=== PATIENT | female | born 1995 | race Caucasian/White ===

== ENCOUNTER 2016-04-01 21:18 | Emergency (ER) | payer OTHER ==
[2016-04-01 21:25] VITALS: BP 117/68; PULSE 101; TEMP 100; BMI 19.9
[2016-04-01 21:35] LABS: URINE APPEARANCE Clear; URINE BILIRUBIN Negative (NEGATIVE); URINE BLOOD Negative (NEGATIVE); URINE GLUCOSE (UA) Negative (NEGATIVE); URINE KETONE Negative (NEGATIVE); URINE LEUK ESTERASE Negative (NEGATIVE); URINE NITRITE Negative (NEGATIVE); URINE PROTEIN Negative (NEGATIVE); URINE UROBILINOGEN 1.0 E.U/dl (0.2-1.0)
[2016-04-01 21:36] LABS: URINE COLOR YELLOW
[2016-04-01] MEDS ORDERED: ONDANSETRON 4 MG/2 ML VIAL IVPB ONE (22:14)
[2016-04-01] MEDS ORDERED: SODIUM CHLORIDE 1,000 ML IV STA (22:14)
[2016-04-01] MEDS ORDERED: KETOROLAC TROMETHAMINE 30 MG/1 ML VIAL IVPUSH ONE (22:15)
[2016-04-01] MEDS ORDERED: ONDANSETRON 4 MG/2 ML VIAL ONE (22:19)
[2016-04-01] MEDS ORDERED: KETOROLAC TROMETHAMINE 30 MG/1 ML VIAL ONE (22:19)
[2016-04-01 22:38] LABS: BASOPHIL 0.6 % (0-2.0); EOSINOPHIL 0.9 % (0-4.5); MCH 29.8 pg (25.7-33.7); MCHC 33.6 g/dl (32.0-36.0); MEAN CELL VOLUME 88.8 fl (80-96); MEAN PLT VOLUME 6.8 fl (7.5-11.1); NEUTROPHILS 82.7 % (42.8-82.8); PLATELET COUNT 197 K/MM3 (134-434); RDW 12.8 % (11.6-15.6); WHITE BLOOD COUNT 8.1 K/mm3 (4.0-10.0)
--- NOTE | 2016-04-01 23:13 | PDOC ---
History of Present Illness - General Chief Complaint: Pain Stated Complaint: ABD PAIN/NAUSEA/CHILLS Time Seen by Provider: 04/01/16 22:13 History Source: Patient Exam Limitations: No Limitations - History of Present Illness Initial Comments: 04/01/16 23:07 20 y f hx o ovarian cysts. pte c/o abd pain since last week. b/l but mostly on rt and suprapubic areas. started at epigastrium. nausea but no vomiting. fever and chills. no dysuria, but fcy. in ed in mild distress. sts gets cramps w/ her periods but never like this or with fever. due in the next 2-3 days for it. Past History - Past Medical History Allergies/Adverse Reactions: Allergies Allergy/AdvReac Type Severity Reaction Status Date / Time Penicillins Allergy Verified 12/07/14 18:17 Home Medications: Ambulatory Orders Albuterol Sulfate Inhaler - [Ventolin HFA Inhaler -] 1 - 2 inh PO QID PRN Ibuprofen [Motrin -] 600 mg PO TID #21 tablet 07/29/14 Oxycodone HCl/Acetaminophen [Percocet 5-325 mg Tablet -] 1 - 2 tab PO Q6H #7 tablet 07/29/14 Asthma: Yes - Psycho/Social/Smoking Cessation Hx Anxiety: No Suicidal Ideation: No Smoking History: Never smoked Have you smoked in the past 12 months: No Number of Cigarettes Smoked Daily: 0 Information on smoking cessation initiated: No Hx Alcohol Use: No Drug/Substance Use Hx: No Substance Use Type: None Review of Systems - Review of Systems Able to Perform ROS?: Yes Is the patient limited Tongan proficient: No Constitutional: Yes: Symptoms Reported, See HPI HEENTM: No: Symptoms Reported Respiratory: No: Symptoms reported Cardiac (ROS): No: Symptoms Reported ABD/GI: Yes: Symptoms Reported, See HPI : Yes: Symptoms Reported, See HPI Integumentary: No: Symptoms Reported All Other Systems: Reviewed and Negative *Physical Exam - Vital Signs Last Vital Signs Temp Pulse Resp BP Pulse Ox 100 F H 101 H 14 117/68 99 04/01/16 21:21 04/01/16 21:21 04/01/16 21:21 04/01/16 21:21 04/01/16 21:21 - Physical Exam General Appearance: Yes: Nourished, Appropriately Dressed. No: Apparent Distress HEENT: positive: Normal ENT Inspection Neck: positive: Supple Respiratory/Chest: positive: Lungs Clear, Normal Breath Sounds. negative: Chest Tender, Respiratory Distress Cardiovascular: positive: Regular Rhythm, Regular Rate, Tachycardia Gastrointestinal/Abdominal: positive: Normal Bowel Sounds, Tender (rlq and suprapubic area no g/r) Musculoskeletal: positive: Normal Inspection. negative: CVA Tenderness Extremity: positive: Normal Capillary Refill Integumentary: positive: Normal Color Neurologic: positive: Fully Oriented, Alert, Normal Mood/Affect, Normal Response , Motor Strength 07/17 ED Treatment Course - LABORATORY CBC & Chemistry Diagram: 04/01/16 22:25 - ADDITIONAL ORDERS Additional order review: Laboratory Results 04/01/16 21:30 Urine Color Yellow Urine Appearance Clear Urine pH 7.0 Ur Specific [place] 1.025 Urine Protein Negative Urine Glucose (UA) Negative Urine Ketones Negative Urine Blood Negative Urine Nitrite Negative Urine Bilirubin Negative Urine Urobilinogen 1.0 e.u/dl Ur Leukocyte Esterase Negative Urine HCG, Qual Negative 04/01/16 22:25 RBC 4.40 MCV 88.8 MCHC 33.6 RDW 12.8 MPV 6.8 L Neutrophils % 82.7 D Lymphocytes % 10.8 D Monocytes % 5.0 Eosinophils % 0.9 Basophils % 0.6 - RADIOLOGY Radiology Studies Ordered: Category Date Time Status ABDOMEN & PELVIS CT W/O CONTR [CT] Stat CT Scan 04/01/16 23:07 Ordered - Medications Given in the ED: ED Medications Discontinued Medications Generic Name Dose Route Start Last Admin Trade Name Gerardo PRN Reason Stop Dose Admin Ketorolac Tromethamine 30 mg 04/01/16 22:15 04/01/16 22:31 Toradol Injection - IVPUSH 04/01/16 22:16 30 mg ONCE ONE Administration Ondansetron HCl 4 mg 04/01/16 22:14 04/01/16 22:30 Zofran Injection IVPB 04/01/16 22:15 4 mg ONCE ONE Administration Progress Note - Progress Note Progress Note: 1 week hx of pain and now fever could be pretty much anything at this paint, from cramps + viral syndrome to appy/pelvic infection. cbc is good and so is her u/a. will ct a/p and reassess Ct nrmal except for some fluid in the cds. pelvic exam: + d/c; no CMT. no adx tenderness feels better normal labs *DC/Admit/Observation/Transfer Diagnosis at time of Disposition: Pelvic pain - Discharge Dispostion Disposition: HOME Condition at time of disposition: Improved - Patient Instructions Additional Instructions: PLENTY OF FLUIDS (WATER/GATORADE) MOTRIN/TYLENOL FOR FEVER OR PAIN REST SEE YOUR DOCTOR ON WEDNESDAY RETURN IF FEVER, VOMITING, SEVERE PAIN OR NEW SYMPTOMS
[2016-04-07 00:09] LABS: CHLAM.TRACHOMATIS NAA Negative (Negative); GONOCOCCUS NAA Negative (Negative); TRICH VAG NAA Negative (Negative)
== END 2016-04-02 00:44 | disposition home or self-care (01) ==
LOC: FER 21:18
PROC: 3E0333Z Introduction of Anti-inflammatory into Peripheral Vein, Percutaneous Approach (ICD-10-PCS; principal; 2016-04-01)
PROC: 3E033GC Introduction of Other Therapeutic Substance into Peripheral Vein, Percutaneous Approach (ICD-10-PCS; 2016-04-01)
PROC: 3E0337Z Introduction of Electrolytic and Water Balance Substance into Peripheral Vein, Percutaneous Approach (ICD-10-PCS; 2016-04-01)
DX: R10.2 Pelvic and perineal pain (principal); J45.909 Unspecified asthma, uncomplicated
CPT/HCPCS: 36415; 74176-TC; 81003; 84703; 85025; 87491; 87591; 87661; 99283-25

== ENCOUNTER 2016-05-08 18:50 | Emergency (ER) | payer OTHER ==
[2016-05-08 19:06] VITALS: BP 111/77; PULSE 75; TEMP 97.7; BMI 21.4
[2016-05-08 19:17] LABS: URINE APPEARANCE Clear; URINE BILIRUBIN Negative (NEGATIVE); URINE BLOOD Negative (NEGATIVE); URINE GLUCOSE (UA) Negative (NEGATIVE); URINE KETONE Negative (NEGATIVE); URINE LEUK ESTERASE Negative (NEGATIVE); URINE NITRITE Negative (NEGATIVE); URINE PROTEIN Negative (NEGATIVE); URINE UROBILINOGEN 1.0 E.U/dl (0.2-1.0)
[2016-05-08 19:18] LABS: URINE COLOR YELLOW
--- NOTE | 2016-05-08 19:37 | PDOC ---
History of Present Illness - General History Source: Patient Exam Limitations: No Limitations - History of Present Illness Travel History: No Initial Comments: 05/08/16 20:16 The patient is a 20 year old female with no significant past medical history who presents to the ED with nausea, vomiting, and diarrhea 1 week. Patient reports multiple episodes of vomiting watery in nature, non bloody, non bilious. She also reports epigastric pain and substernal chest discomfort that is exacerbated by a vomiting episode. She also reports one episode of diarrhea today. She states that she is unable to keep much down. She reports tactile fever and diaphoresis. She denies recent travel. She denies recent sick contact. Patient has a control patch. Adult PAST MEDICAL HISTORY: no significant history PAST SURGICAL HISTORY: no significant history FAMILY HISTORY: no pertinent history SOCIAL HISTORY: Pt lives with family and is employed. MEDICATIONS: reviewed ALLERGIES: As per nursing notes General: +fever. No chills, no weakness, no weight loss HEENT: No change in vision. No sore throat, No ear pain CardioVascular: +chest discomfort. No shortness of breath Respiratory: No cough, or wheezing. Gastrointestinal: +nausea, +vomiting, +diarrhea, +epigastric pain. No constipation, No rectal bleeding Genitourinary: No dysuria, hematuria, or frequency Musculoskeletal: No joint or muscle pain or swelling Neurologic: No headache, vertigo, dizziness or loss of consciousness Psychiatric: nor depression Skin: No rashes or easy bruising Endocrine: no increased thirst or abnormal weight change Allergic: no skin or latex allergy All other systems reviewed and normal General: Well-nourished well-developed individual, no acute distress HEENT: +dry mucous membranes. Throat: Normal, tonsils normal, no erythema or exudate Neck: Supple, no meningeal signs, no lymphadenopathy Eyes: Pupils equal reactive and round, extraocular motion intact Chest: Nontender to palpation Cardiac: S1-S2 normal, regular rate and rhythm, no murmurs rubs or gallops Respiratory: Lungs clear to auscultation bilateral Abdomen: +mild epigastric tenderness upon palpation, no guarding or rebound. Soft, nondistended, normal bowel sounds. Extremities: Warm, dry, no cyanosis, clubbing, or edema Skin: No rashes Neuro: Alert and oriented x3, nonfocal exam, grossly intact, normal gait Psych: Normal mood and affect <KoziyElizabeth - Last Filed: 05/08/16 20:53> - General History Source: Patient Exam Limitations: No Limitations - History of Present Illness Initial Comments: 05/08/16 23:26 A portion of this note was documented by scribe services under my direction. I have reviewed the details of the note, within reason, and agree with the documentation. The case summary and management plan written by me. Assessment and plan: This is a 20-year-old female who comes in complaining of intermittent nausea vomiting and diarrhea 1 week. Patient said the diarrhea has nearly resolved but she continues to feel nauseous and have intermittent vomiting. Patient also was complaining of some burning type epigastric pain. Patient was given IV fluids 2 L in the emergency room She was also given antiemetics and antacids. On reevaluation patient feels much better pain has nearly resolved nausea is nearly resolved and she is now well hydrated. Lab work was sent her white count is normal there is no left shift and her chemistries are unremarkable. Patient discharged home with prescription for Zofran and told to take antacids if the discomfort in her epigastric area returns and to follow-up with her DrTad on Wednesday. 05/08/16 23:28 <Humberto Mtz I - Last Filed: 05/08/16 23:29> - General Chief Complaint: Vomiting/Diarrhea Stated Complaint: VOMITING & DIARRHEA Time Seen by Provider: 05/08/16 18:55 Past History <Elizabeth Hayes - Last Filed: 05/08/16 20:53> - Past Medical History Asthma: Yes - Immunization History Immunization Up to Date: Yes - Psycho/Social/Smoking Cessation Hx Anxiety: No Suicidal Ideation: No Smoking History: Unknown if ever smoked Have you smoked in the past 12 months: No Number of Cigarettes Smoked Daily: 0 Hx Alcohol Use: No Drug/Substance Use Hx: No Substance Use Type: None <Humberto Mtz I - Last Filed: 05/08/16 23:29> - Past Medical History Allergies/Adverse Reactions: Allergies Allergy/AdvReac Type Severity Reaction Status Date / Time Penicillins Allergy Verified 05/08/16 18:56 Home Medications: Ambulatory Orders NK [No Known Home Medication] 05/08/16 *Physical Exam - Vital Signs Last Vital Signs Temp Pulse Resp BP Pulse Ox 97.7 F 75 16 111/77 100 05/08/16 18:55 05/08/16 18:55 05/08/16 18:55 05/08/16 18:55 05/08/16 18:55 <Elizabeth Hayes - Last Filed: 05/08/16 20:53> - Vital Signs Last Vital Signs Temp Pulse Resp BP Pulse Ox 97.7 F 75 16 111/77 100 05/08/16 18:55 05/08/16 18:55 05/08/16 18:55 05/08/16 18:55 05/08/16 18:55 <Humberto Mtz I - Last Filed: 05/08/16 23:29> ED Treatment Course - LABORATORY CBC & Chemistry Diagram: 05/08/16 20:25 05/08/16 20:25 - ADDITIONAL ORDERS Additional order review: Laboratory Results 05/08/16 19:05 Urine Color Yellow Urine Appearance Clear Urine pH 6.0 Ur Specific [place] 1.025 Urine Protein Negative Urine Glucose (UA) Negative Urine Ketones Negative Urine Blood Negative Urine Nitrite Negative Urine Bilirubin Negative Urine Urobilinogen 1.0 e.u/dl Ur Leukocyte Esterase Negative Urine HCG, Qual Negative - Medications Given in the ED: ED Medications Discontinued Medications Generic Name Dose Route Start Last Admin Trade Name Gerardo PRN Reason Stop Dose Admin Ondansetron HCl 4 mg 05/08/16 19:42 05/08/16 20:00 Zofran Injection IVPB 05/08/16 19:43 4 mg ONCE ONE Administration Ondansetron HCl 4 mg 05/08/16 19:48 05/08/16 20:00 Zofran Injection IVPUSH 05/08/16 19:49 4 mg ONCE ONE Administration <Elizabeth Hayes - Last Filed: 05/08/16 20:53> - LABORATORY CBC & Chemistry Diagram: 05/08/16 20:25 05/08/16 20:25 - ADDITIONAL ORDERS Additional order review: Laboratory Results 05/08/16 19:05 Urine Color Yellow Urine Appearance Clear Urine pH 6.0 Ur Specific [place] 1.025 Urine Protein Negative Urine Glucose (UA) Negative Urine Ketones Negative Urine Blood Negative Urine Nitrite Negative Urine Bilirubin Negative Urine Urobilinogen 1.0 e.u/dl Ur Leukocyte Esterase Negative Urine HCG, Qual Negative <TomFariba rosadokrzysztofsamuel Cerna - Last Filed: 05/08/16 23:29> *DC/Admit/Observation/Transfer - Attestations Scribe Attestion: 05/08/16 20:53 Documentation prepared by RAJ Honeycutt, acting as auditor medical claims for Humberto Mtz MD/DO. <Elizabeth Hayes - Last Filed: 05/08/16 20:53> - Discharge Dispostion Admit: No <BibiFaribadaisyalonzo Cerna - Last Filed: 05/08/16 23:29> Diagnosis at time of Disposition: Gastroenteritis - Discharge Dispostion Disposition: HOME Condition at time of disposition: Good - Referrals Referrals: Constance Irizarry [Primary Care Provider] - - Patient Instructions Printed Discharge Instructions: DI for Vomiting -- Adult Additional Instructions: Clear liquids only for the next 6 hours.. After that if you have had no further vomiting you may have bananas, rice, applesauce, or toast. If no further vomiting for another 8 hours you may have regular food. If you vomit again then nothing to eat or drink for 2 hours. then start back with the clear liquids. Return to the emergency department immediately with ANY new, persistent or worsening symptoms. You MUST call and follow up with your doctor tomorrow if not better. Please make sure your doctor reviews the results of your emergency evaluation. If you develop any further nausea you can take Zofran 1 tablet T dissolve under your tongue take it as often as 3 times a day if needed. 4 pain in your upper abdominal area take antacids such as [id number] Pepcid or Tums. Continue any medications as previously prescribed by your physician. Thank you for coming to the Emergency Department today for your care. It was a pleasure to see you today. Please note that your evaluation is INCOMPLETE until you follow-up with your doctor.
[2016-05-08] MEDS ORDERED: SODIUM CHLORIDE 1,000 ML IV ONE (19:42)
[2016-05-08] MEDS ORDERED: ONDANSETRON 4 MG/2 ML VIAL IVPB ONE (19:42)
[2016-05-08] MEDS ORDERED: ONDANSETRON 4 MG/2 ML VIAL ONE ×2 (19:45→19:48)
[2016-05-08] MEDS ORDERED: ONDANSETRON 4 MG/2 ML VIAL IVPUSH ONE (19:48)
[2016-05-08] MEDS ORDERED: FAMOTIDINE 20 MG/50 ML IVPB 50 ML IVPB ONE ×2 (20:15→20:40)
[2016-05-08 20:40] LABS: BASOPHIL 1.5 % (0-2.0); EOSINOPHIL 3.3 % (0-4.5); MCH 29.7 pg (25.7-33.7); MCHC 33.8 g/dl (32.0-36.0); MEAN CELL VOLUME 87.9 fl (80-96); NEUTROPHILS 59.5 % (42.8-82.8); PLATELET COUNT 276 K/MM3 (134-434); RDW 12.6 % (11.6-15.6); WHITE BLOOD COUNT 8.3 K/mm3 (4.0-10.0)
[2016-05-08 21:00] LABS: ALBUMIN 3.9 g/dl (3.5-5.0); ALK PHOS 38 U/L (32-92); ANION GAP 7 (8-16); BILIRUBIN,TOTAL 0.4 mg/dl (0.2-1.0); CALCIUM 9.2 mg/dl (8.4-10.2); CO2 29 mmol/L (22-28); CREATININE 0.7 mg/dl (0.6-1.3); GLUCOSE,RANDOM 79 mg/dl (74-106); SGOT/AST 20 U/L (10-42); SGPT/ALT 15 U/L (10-40); TOT PROT 6.7 g/dl (6.4-8.3)
[2016-05-08] MEDS ORDERED: METOCLOPRAMIDE HCL INJECTION 10 MG/2 ML VIAL IVPUSH ONE (21:21)
[2016-05-08] MEDS ORDERED: MAG HYDROX/AL HYDROX/SIMETH 355 ML ORAL.SUSP PO ONE (22:01)
[2016-05-08] MEDS ORDERED: MAG HYDROX/AL HYDROX/SIMETH 30 ML UNIT-DOSE CUP ONE (22:36)
== END 2016-05-08 23:36 | disposition home or self-care (01) ==
LOC: FER 18:50
PROC: 3E033GC Introduction of Other Therapeutic Substance into Peripheral Vein, Percutaneous Approach (ICD-10-PCS; principal; 2016-05-08)
PROC: 3E0337Z Introduction of Electrolytic and Water Balance Substance into Peripheral Vein, Percutaneous Approach (ICD-10-PCS; 2016-05-08)
DX: K52.9 Noninfective gastroenteritis and colitis, unspecified (principal)
CPT/HCPCS: 36415; 80053; 81003; 84703; 85025; 99282-25

== ENCOUNTER 2016-06-05 10:45 | Emergency (ER) | payer OTHER ==
[2016-06-05 10:51] VITALS: BP 105/73; PULSE 66; TEMP 98.7; BMI 21.1
--- NOTE | 2016-06-05 10:54 | PDOC ---
History of Present Illness - General Chief Complaint: Respiratory Stated Complaint: COUGH Time Seen by Provider: 06/05/16 10:46 History Source: Patient Exam Limitations: No Limitations - History of Present Illness Initial Comments: 06/05/16 10:47 This is an otherwise healthy 20 yo F presenting to the ER with a complaint of cough Symptoms have been present for the past week She saw her PMD approximately 4 days ago, was given cough medicine Pt states that over the past few days, her symptoms worsened She denies shortness of breath Although she has a history of asthma, she denies wheezing currently She presented today due to complaints about lower thoracic pain which wraps around to the front of her chest (+) ill contact (2 year old child) No recent travel PMH: Asthma (no prior intubations) PSH: denies Meds: control patch ALL: PCN Social: denies tobacco, drug use. Student at [employer] ROS: GENERAL/CONSTITUTIONAL: Yes: subjective fevers No: weakness, loss of appetite. HEAD, EYES, EARS, NOSE AND THROAT: No: change in vision, ear pain, discharge, sore throat, throat swelling. CARDIOVASCULAR: Yes: lower chest pain No: lightheadedness, palpitations, syncope RESPIRATORY: Yes: cough No: shortness of breath, wheezing, hemoptysis, stridor. GASTROINTESTINAL: No: nausea, vomiting, diarrhea, abdominal pain GENITOURINARY: No:flank pain (pain is just superior to flanks bilaterally) MUSCULOSKELETAL: Yes: lower thoracic back pain SKIN: No: lesions, rash NEUROLOGIC: No: headache ENDOCRINE: No: unexplained weight gain or loss HEMATOLOGIC/LYMPHATIC: No: anemia, easy bleeding, swelling nodes. PE: GENERAL: The patient is in no acute distress, (+) coughing during examination. HEAD: Normal with no signs of trauma. EYES: PERRLA, EOMI, sclera anicteric, conjunctiva clear. ENT: Ears normal, nares patent, oropharynx clear without exudates. Moist mucous membranes. NECK: Normal range of motion, supple without lymphadenopathy, JVD, or masses. LUNGS: Breath sounds equal, clear to auscultation bilaterally. No wheezes HEART: Regular rate and rhythm, normal S1 and S2 without murmur, rub or gallop. ABDOMEN: Soft, nontender, normoactive bowel sounds. No guarding, no rebound. No masses palpable. EXTREMITIES: Normal range of motion, no edema. No clubbing or cyanosis. No erythema, or tenderness. NEUROLOGICAL: Cranial nerves II through XII grossly intact. Normal speech. No focal neurological deficits. MUSCULOSKELETAL: Back non-tender to palpation, no CVA tenderness SKIN: Warm, Dry, normal turgor, no rashes or lesions noted. 06/05/16 10:54 06/05/16 11:00 Past History - Past Medical History Allergies/Adverse Reactions: Allergies Allergy/AdvReac Type Severity Reaction Status Date / Time Penicillins Allergy Verified 06/05/16 10:46 Home Medications: Ambulatory Orders Azithromycin [Zithromax 250mg Tablets -] 250 mg PO UTDICT #6 tab 06/05/16 Control Patch 0 mg TD DAILY 06/05/16 Guaifenesin [Mucinex -] 600 mg PO BID #14 tablet.er 06/05/16 Asthma: Yes - Immunization History Immunization Up to Date: Yes - Psycho/Social/Smoking Cessation Hx Anxiety: No Suicidal Ideation: No Smoking History: Unknown if ever smoked Have you smoked in the past 12 months: No Number of Cigarettes Smoked Daily: 0 Hx Alcohol Use: No Drug/Substance Use Hx: No Substance Use Type: None Medical Decision Making - Medical Decision Making 06/05/16 10:59 Symptoms began with cough that has worsened and persisted Back pain likely consistent with muscular pain due to coughing Possibly related to lower lobe pneumonia vs. pleural effusion Unlikely PE (no tachycardia, No hypoxia, no tobacco use... but pt is on control) Will do: Urine HCG CXR Will plan to discharge to home 06/05/16 11:14 Laboratory Tests 06/05/16 10:46 Urine HCG, Qual Negative 06/05/16 12:02 CXR nml Pt brother presented to the ER States she has actually had a cold for the past 3 weeks She has progressively worsened Will: discharge on Azithromycin Mucinex Return if symptoms do not improve *DC/Admit/Observation/Transfer Diagnosis at time of Disposition: Cough Upper respiratory infection Qualifiers: URI type: unspecified viral URI Qualified Code(s): J06.9 - Acute upper respiratory infection, unspecified - Discharge Dispostion Disposition: HOME Condition at time of disposition: Stable Admit: No - Prescriptions Prescriptions: Guaifenesin [Mucinex -] 600 mg PO BID #14 tablet.er Azithromycin [Zithromax 250mg Tablets -] 250 mg PO UTDICT #6 tab - Patient Instructions Printed Discharge Instructions: DI for Viral Upper Respiratory Infection -- Adult, DI for Cough -- Adult Additional Instructions: Jenise Thank you for coming in to the ER today Please take medications as prescribed You can also take tylenol (1000mg - 2 extra strength Tylenol) or Motrin (600mg - 3 tablets) for fever or pain Please stay hydrated - water, gatorade, soups, teas Please return to the ER if your symptoms persist or do not improve over the next 2 -3 days OR if you develop new symptoms Please follow up with your PMD in 1 week
== END 2016-06-05 12:08 | disposition home or self-care (01) ==
LOC: FER 10:45
DX: J06.9 Acute upper respiratory infection, unspecified (principal); B34.9 Viral infection, unspecified; J45.909 Unspecified asthma, uncomplicated
CPT/HCPCS: 71020-TC; 84703; 99282-25

== ENCOUNTER 2017-03-15 18:30 | Emergency (ER) | payer OTHER ==
[2017-03-15 19:09] VITALS: BP 123/83; PULSE 75; TEMP 98.1; BMI 21.5
[2017-03-15] MEDS ORDERED: SODIUM CHLORIDE 1,000 ML IV STA (19:16)
--- NOTE | 2017-03-15 19:17 | PDOC ---
History of Present Illness - History of Present Illness Initial Comments: 03/15/17 19:33 The patient is a 21 year old female, with a significant past medical history of asthma, on control patch, who presents to the emergency department with nausea, vomiting, and diarrhea since 10am today. Patient states she has been vomiting consistently every 20-30 minutes. Patient states vomit is nonbloody and bile-like. Patient states she has been unable to hold down any food or drink. She has had bouts of diarrhea, last episode was at 2pm. She also states she has been experiencing some intermittent light-headedness. She recalls feeling a little under the weather yesterday. She denies any recent travel or sick contacts. She states her LMP was two weeks late and her menses ended last week. She denies recent fevers, chills, headache or dizziness. She denies recent nausea, vomit, diarrhea or constipation. She denies recent dysuria, frequency, urgency or hematuria. She denies recent chest pain or shortness of breath. Allergies:penicillins Past surgical history: None reported. Social history: Nonsmoker. Social EtOH use. Denies recreational drug use. Primary Care Physician: Constance Irizarry <April Brown - Last Filed: 03/15/17 19:33> <Samantha Chacko - Last Filed: 03/16/17 04:30> - General Chief Complaint: Vomiting/Diarrhea Stated Complaint: N/V/D Time Seen by Provider: 03/15/17 19:05 Past History <April Brown - Last Filed: 03/15/17 19:33> - Past Medical History Asthma: Yes COPD: No - Immunization History Immunization Up to Date: Yes - Suicide/Smoking/Psychosocial Hx Smoking History: Never smoked Have you smoked in the past 12 months: No Number of Cigarettes Smoked Daily: 0 Hx Alcohol Use: Yes (SOCIAL) Drug/Substance Use Hx: No Substance Use Type: None <Samantha Chacko - Last Filed: 03/16/17 04:30> - Past Medical History Allergies/Adverse Reactions: Allergies Allergy/AdvReac Type Severity Reaction Status Date / Time Penicillins Allergy Verified 06/05/16 10:46 Home Medications: Ambulatory Orders Control Patch 0 mg TD DAILY 06/05/16 Ondansetron [Zofran Odt -] 4 mg SL TID PRN #10 od.tablet 03/15/17 Review of Systems - Review of Systems Comments:: 03/15/17 19:34 GENERAL/CONSTITUTIONAL: + subjective fever, No chills. HEAD, EYES, EARS, NOSE AND THROAT: No change in vision. No ear pain or discharge. No sore throat. CARDIOVASCULAR: No chest pain or shortness of breath. RESPIRATORY: No cough, wheezing, or hemoptysis. GASTROINTESTINAL: +nausea, +vomiting, +diarrhea. No constipation. GENITOURINARY: No dysuria, frequency, or change in urination. MUSCULOSKELETAL: No joint or muscle swelling or pain. No neck or back pain. SKIN: No rash NEUROLOGIC: +lightheadedness. No headache, loss of consciousness, or change in strength/sensation. ENDOCRINE: No increased thirst. No abnormal weight change. HEMATOLOGIC/LYMPHATIC: No anemia, easy bleeding, or history of blood clots. ALLERGIC/IMMUNOLOGIC: No hives or skin allergy. <April Brown - Last Filed: 03/15/17 19:33> *Physical Exam - Vital Signs Last Vital Signs Temp Pulse Resp BP Pulse Ox 98.1 F 75 15 123/83 100 03/15/17 19:03 03/15/17 19:03 03/15/17 19:03 03/15/17 19:03 03/15/17 19:03 - Physical Exam Comments: 03/15/17 19:34 GENERAL: Awake, alert, and fully oriented, in no acute distress HEAD: No signs of trauma EYES: PERRLA, EOMI, sclera anicteric, conjunctiva clear ENT: Auricles normal inspection, hearing grossly normal, nares patent, oropharynx clear without exudates. Dry mucous membranes. NECK: Normal ROM, supple, no lymphadenopathy, JVD, or masses LUNGS: Breath sounds equal, clear to auscultation bilaterally. No wheezes, and no crackles HEART: Regular rate and rhythm, normal S1 and S2, no murmurs, rubs or gallops ABDOMEN: Soft, mild epigastric tenderness, normoactive bowel sounds. No guarding, no rebound. No masses EXTREMITIES: Normal range of motion, no edema. No clubbing or cyanosis. No cords, erythema, or tenderness NEUROLOGICAL: Cranial nerves II through XII grossly intact. Normal speech, normal gait SKIN: Warm, Dry, normal turgor, no rashes or lesions noted. <April Brown - Last Filed: 03/15/17 19:33> - Vital Signs Last Vital Signs Temp Pulse Resp BP Pulse Ox 98.1 F 75 15 123/83 100 03/15/17 19:03 03/15/17 19:03 03/15/17 19:03 03/15/17 19:03 03/15/17 19:03 <Samantha Chacko - Last Filed: 03/16/17 04:30> ED Treatment Course - LABORATORY CBC & Chemistry Diagram: 03/15/17 19:15 03/15/17 19:15 <April Brown - Last Filed: 03/15/17 19:33> - LABORATORY CBC & Chemistry Diagram: 03/15/17 19:15 03/15/17 19:15 <Samantha Chacko - Last Filed: 03/16/17 04:30> Progress Note - Progress Note Progress Note: Documentation has been prepared under my direction and personally reviewed by me in its entirety. I attest that this documented accurately reflects all work, treatment, procedures and medical decision making performed by me. <Samantha Chacko - Last Filed: 03/16/17 04:30> Medical Decision Making - Medical Decision Making As noted above, this 21-year-old woman, otherwise healthy, presents with 1 day history of progressive nausea/vomiting. She also had a few episodes of loose stool. No recent travel or sick contacts; she cannot recall any unusual food exposure. Exam notable for dry mucous membranes and mildly tender epigastrium. No other tenderness/rebound/guarding present in her abdomen. Clinical presentation most consistent with acute gastroenteritis. Patient felt significantly better after administration of Zofran and 2 L of normal saline IV. Other than a mildly elevated white blood cell count, laboratory evaluation was essentially normal. Patient was given a trial of water by mouth which she was able tolerate without nausea or vomiting. Zofran OTD 4 mg up to 3 times a day (#10) was transmitted to her pharmacy Patient was instructed to maintain clear liquid diet and advance diet cautiously. She should return to the ER if she has recurrent vomiting or develops fever/worsening abdominal pain <Samantha Chacko - Last Filed: 03/16/17 04:30> *DC/Admit/Observation/Transfer - Attestations Scribe Attestion: 03/15/17 19:35 Documentation prepared by April Brown, acting as medical radiation tech for Samantha Chacko MD. <April Brown - Last Filed: 03/15/17 19:33> <Samantha Chacko - Last Filed: 03/16/17 04:30> Diagnosis at time of Disposition: Gastroenteritis - Discharge Dispostion Disposition: HOME Condition at time of disposition: Stable - Prescriptions Prescriptions: Ondansetron [Zofran Odt -] 4 mg SL TID PRN #10 od.tablet PRN Reason: Nausea - Referrals Referrals: Constance Irizarry [Primary Care Provider] - - Patient Instructions Printed Discharge Instructions: DI for Viral Gastroenteritis -- Adult Additional Instructions: Clear liquids; advance diet cautiously Zofran ODT 4 mg up to 3 times a day as needed for nausea Return to ER if you have persistent vomiting/high fever/worsening abdominal pain Follow-up with your general doctor within the next 2-3 days - Post Discharge Activity
[2017-03-15] MEDS ORDERED: ONDANSETRON 4 MG/2 ML VIAL IVPUSH ONE (19:28)
[2017-03-15 19:29] LABS: URINE APPEARANCE Clear; URINE BILIRUBIN Negative (NEGATIVE); URINE GLUCOSE (UA) Negative (NEGATIVE); URINE KETONE Trace (NEGATIVE); URINE NITRITE Negative (NEGATIVE); URINE PROTEIN Negative (NEGATIVE); URINE UROBILINOGEN 0.2 (0.2-1.0)
[2017-03-15 19:33] LABS: BASO % 0.2 % (0-2.0); EOS % 0.8 % (0-4.5); HEMATOCRIT 45.3 % (32.4-45.2); HEMOGLOBIN 14.9 GM/dl (10.7-15.3); LYMPH % 12.3 % (8-40); MCH 29.8 pg (25.7-33.7); MCHC 32.8 g/dl (32.0-36.0); MEAN CELL VOLUME 90.6 fl (80-96); MEAN PLT VOLUME 7.4 fl (7.5-11.1); MONO % 1.5 % (3.8-10.2); NEUT % 85.2 % (42.8-82.8); PLATELET COUNT 265 K/MM3 (134-434); RDW 12.9 % (11.6-15.6); WHITE BLOOD COUNT 11.1 K/mm3 (4.0-10.8)
[2017-03-15 19:37] LABS: HCG,QUALITATIVE URINE NEGATIVE
[2017-03-15 19:38] LABS: URINE BLOOD 2+ (NEGATIVE); URINE COLOR YELLOW
[2017-03-15] MEDS ORDERED: ONDANSETRON 4 MG/2 ML VIAL ONE (19:44)
[2017-03-15 19:51] LABS: ALBUMIN 4.2 g/dl (3.5-5.0); ALK PHOS 44 U/L (32-92); ANION GAP 7 (8-16); BLOOD UREA NITROGEN 19 mg/dl (7-18); CALCIUM 9.1 mg/dl (8.4-10.2); CHLORIDE 101 mmol/L (98-107); CO2 28 mmol/L (22-28); CREATININE 0.7 mg/dl (0.6-1.3); GLUCOSE,RANDOM 86 mg/dl (74-106); POTASSIUM 3.9 mmol/L (3.5-5.1); SGOT/AST 20 U/L (10-42); SGPT/ALT 15 U/L (10-40); SODIUM 136 mmol/L (136-145); TOT PROT 7.2 g/dl (6.4-8.3)
[2017-03-15 20:16] LABS: URINE WBC 0-3 (0-5)
[2017-03-15 20:17] LABS: EPI CELLS 0-3 /HPF
== END 2017-03-15 21:12 | disposition home or self-care (01) ==
LOC: FER 18:30
PROC: 3E033GC Introduction of Other Therapeutic Substance into Peripheral Vein, Percutaneous Approach (ICD-10-PCS; principal; 2017-03-15)
PROC: 3E0337Z Introduction of Electrolytic and Water Balance Substance into Peripheral Vein, Percutaneous Approach (ICD-10-PCS; 2017-03-15)
DX: K52.9 Noninfective gastroenteritis and colitis, unspecified (principal)
CPT/HCPCS: 36415; 80053; 81003; 81015; 83690; 84703; 85025; 99282-25

== ENCOUNTER 2018-03-20 08:54 | Emergency (ER) | payer OTHER ==
[2018-03-20] MEDS ORDERED: METOCLOPRAMIDE HCL INJECTION 10 MG/2 ML VIAL IVPB ONE (09:04)
[2018-03-20] MEDS ORDERED: SODIUM CHLORIDE 1,000 ML IV STA (09:04)
[2018-03-20] MEDS ORDERED: ACETAMINOPHEN 1000 MG/100 ML VIAL (NON FORMULARY) IVPB ONE (09:04)
[2018-03-20 09:05] VITALS: BP 106/70; PULSE 64; TEMP 98.4; BMI 20.7
--- NOTE | 2018-03-20 09:09 | PDOC ---
Attending Attestation - Resident Resident Name: Marsha Worrell - ED Attending Attestation I have performed the following: I have examined & evaluated the patient, The case was reviewed & discussed with the resident, I agree w/resident's findings & plan, Exceptions are as noted - HPI HPI: 03/20/18 09:05 22yo F with hx asthma presents to the ED with 3 days of intermittent R eye pain , blurry vision, and vision loss. Pt reports a 2 hour episode of R eye vision loss 3 days ago, was able only to see lights that self resolved. Pt reports since then, intermittent vision loss, worse to her lateral vision today. Also reports eye feels painful. In addition, she reports 3 days of gradual onset global headache. Came in today due to persistence of the symptoms. Denies associated N/V, stiff neck, fevers, focal weakness/numbness. Denies CP/SOB, abd pain, urinary symptoms. Denies hx similar sxs. Denies family hx MS or autoimmune do. Denies drug use. - Physicial Exam PE: 03/20/18 11:11 agree with resident exam - Medical Decision Making 03/20/18 11:11 22yo F presents to the ED with headache, R sided intermittent visual loss (not currently, at this time normal VA b/l), eye pain. Vitals wnl. Presentation c/f optic neuritis in setting of new onset MS. DDx also include venous thrombosis, paulo as pt is on control patch. Also high likelihood for ocular migraine, although this is a diagnosis of exclusion. Plan for: -UPT -labs -CTH -neuro c/s -headache tx -anticipate admission 03/20/18 12:03 CTH neg labs wnl Case discussed with Dr. Johnson, recommends MRI and MRV, both w/o contrast to r /o MS or venous thrombosis. 03/20/18 13:[address] La, does not believe patient needs emergent ophthalmic exam as unlikely emergent ophtho related pathology, more likely ocular migraine. States that optic neuritis would be more constant and not intermittent Dr. La would like to see pt in his office early this week assuming MRI/MRV neg 03/20/18 14:00 MRI negative, MRV negative Pt feeling a lot better No vision loss in the ED Close ophthalmic exam here with no evidence of hemorrhage, disc edema Vision remains 20/20, VFF, EOMI Neuro intact Pt is well appearing, states now jsut mild pressure around the R eye and to R samaritan. Likely new onset ocular migraine REsults and plan discusssed with pt including f/u with neuro and ophtho Requests DC home I discussed the physical exam findings, ancillary test results and final diagnoses with the patient. I answered all of the patient's questions. The patient was satisfied with the care received and felt comfortable with the discharge plan and treatment plan. The patient will call their primary care physician within 24 hours to arrange follow-up and will return to the Emergency Department with any new, persistent or worsening symptoms.
[2018-03-20 09:39] LABS: HCG,QUALITATIVE URINE NEGATIVE; URINE APPEARANCE CLEAR; URINE COLOR YELLOW
[2018-03-20 09:40] LABS: URINE BILIRUBIN NEGATIVE (NEGATIVE); URINE GLUCOSE (UA) NEGATIVE (NEGATIVE); URINE KETONE NEGATIVE (NEGATIVE); URINE LEUK ESTERASE NEGATIVE (NEGATIVE); URINE NITRITE NEGATIVE (NEGATIVE); URINE PROTEIN NEGATIVE (NEGATIVE); URINE UROBILINOGEN 0.2 (0.2-1.0)
[2018-03-20] MEDS ORDERED: ACETAMINOPHEN INJECTION 100 ML IVPB ONE (09:42)
[2018-03-20] MEDS ORDERED: METOCLOPRAMIDE HCL INJECTION 10 MG/2 ML VIAL ONE (09:42)
[2018-03-20 09:49] LABS: HEMATOCRIT 41.7 % (32.4-45.2); HEMOGLOBIN 13.7 GM/dl (10.7-15.3); MCH 30.4 pg (25.7-33.7); MCHC 32.9 g/dl (32.0-36.0); MEAN CELL VOLUME 92.5 fl (80-96); MEAN PLT VOLUME 7.3 fl (7.5-11.1); PLATELET COUNT 256 K/MM3 (134-434); RDW 12.6 % (11.6-15.6); WHITE BLOOD COUNT 7.5 K/mm3 (4.0-10.8)
[2018-03-20 09:50] LABS: BASO % 0.6 % (0-2.0); EOS % 2.4 % (0-4.5); LYMPH % 25.7 % (8-40); NEUT % 67.3 % (42.8-82.8); RBC 4.51 M/mm3 (3.60-5.2)
--- NOTE | 2018-03-20 10:05 | PDOC ---
History of Present Illness - General Chief Complaint: Edema Stated Complaint: RT EYE SWELLING Time Seen by Provider: 03/20/18 09:04 - History of Present Illness Initial Comments: 03/20/18 10:04 The patient is a 22 year old female with no significant PMH who presents to our ED c/o visual changes and eye swelling. 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 Patient continued working and states her symptoms resolved in a few hours. The next day patient noticed her R eye was swollen and slightly painful. Was evaluated by an opometrist or opthomalogist yesterday who stated she needed reading glasses and an MRI. Patient came to our ED this morning after she woke up and her eye was swollen shut. Currently c/o L/R visual field defects. LMP was three weeks previous. Currently on control patch. No known history of familal AI disease. The patient denies any fevers/chills, nausea/vomiting, diarrhea/vomiting, chest pain, shortness of breath. Allergy: Penicillin Surgical: none reported Past History - Past Medical History Allergies/Adverse Reactions: Allergies Allergy/AdvReac Type Severity Reaction Status Date / Time Penicillins Allergy Verified 06/05/16 10:46 Home Medications: Ambulatory Orders Control Patch 0 mg TD DAILY 06/05/16 Asthma: Yes COPD: No - Immunization History Immunization Up to Date: Yes - Suicide/Smoking/Psychosocial Hx Smoking History: Never smoked Have you smoked in the past 12 months: No Number of Cigarettes Smoked Daily: 0 Information on smoking cessation initiated: No 'Breaking Loose' booklet given: 10/15/17 Hx Alcohol Use: No Drug/Substance Use Hx: Yes (MARIJUANA) Substance Use Type: None Review of Systems - Review of Systems Constitutional: No: Chills, Fever HEENTM: Yes: Blurred Vision, Recent change in vision. No: Double Vision Respiratory: No: Cough, Shortness of Breath Cardiac (ROS): No: Chest Pain, Lightheadedness, Palpitations, Syncope ABD/GI: No: Constipated, Diarrhea, Nausea, Vomiting *Physical Exam - Vital Signs Last Vital Signs Temp Pulse Resp BP Pulse Ox 98.4 F 64 20 106/70 100 03/20/18 08:55 03/20/18 08:55 03/20/18 08:55 03/20/18 08:55 03/20/18 08:55 - Physical Exam General Appearance: Yes: Nourished, Appropriately Dressed HEENT: positive: EOMI, ELVIA, Normal Voice, Photophobia, Hearing Grossly Normal, Other (Visual Acuity: 20/20 B/L) Neck: positive: Trachea midline, Supple Respiratory/Chest: positive: Lungs Clear, Normal Breath Sounds Cardiovascular: positive: S1, S2 Gastrointestinal/Abdominal: positive: Normal Bowel Sounds, Soft Extremity: positive: Normal Capillary Refill, Normal Inspection Integumentary: positive: Normal Color, Dry, Warm Neurologic: positive: button inspector II-XII NML intact, Fully Oriented, Alert, Other (non ataxic, non antalgic gait). negative: EOM Palsy, Sensory Deficit, Confused, Disoriented Moderate Sedation - Procedure Monitoring Vital Signs: Procedure Monitoring Vital Signs Temperature 98.4 F 03/20/18 08:55 Pulse Rate 64 03/20/18 08:55 Respiratory Rate 20 03/20/18 08:55 Blood Pressure 106/70 03/20/18 08:55 O2 Sat by Pulse Oximetry (%) 100 03/20/18 08:55 ED Treatment Course - LABORATORY CBC & Chemistry Diagram: 03/20/18 09:33 03/20/18 09:33 - ADDITIONAL ORDERS Additional order review: Laboratory Results 03/20/18 09:33 Urine Color Yellow Urine Appearance Clear Urine pH 7.0 Ur Specific Adell 1.020 Urine Protein Negative Urine Glucose (UA) Negative Urine Ketones Negative Urine Blood Negative Urine Nitrite Negative Urine Bilirubin Negative Urine Urobilinogen 0.2 Ur Leukocyte Esterase Negative Urine HCG, Qual Negative 03/20/18 09:33 RBC 4.51 MCV 92.5 MCHC 32.9 RDW 12.6 MPV 7.3 L Neutrophils % 67.3 Lymphocytes % 25.7 Monocytes % 4.0 Eosinophils % 2.4 Basophils % 0.6 - Medications Given in the ED: ED Medications Discontinued Medications Generic Name Dose Route Start Last Admin Trade Name Freq PRN Reason Stop Dose Admin Acetaminophen 1,000 mg 03/20/18 09:04 03/20/18 09:41 Ofirmev Injection - IVPB 03/20/18 09:05 1,000 mg ONCE ONE Administration Sodium Chloride 1,000 mls @ 1,000 mls/hr 03/20/18 09:04 03/20/18 09:41 Normal Saline - IV 03/20/18 10:03 1,000 mls/hr ASDIR STA Administration Metoclopramide HCl 10 mg 03/20/18 09:04 03/20/18 09:41 Reglan Injection - IVPB 03/20/18 09:05 10 mg ONCE ONE Administration Medical Decision Making - Medical Decision Making 03/20/18 10:05 22 year old female with visual changes. VS unremarkable. Frontal diagnosis: migraines vs. MS vs. central venous thrombosis vs. vs brain mass. Will obtain CT head to r/o brain mass, basic labs, urine . Will contact neurology to approve stat MRI (MS) and stat MRV (central venous thrombosis). Tylenol for pain control. Reassess. 03/20/18 11:01 [address] @ [address] 03/20/18 11:15 My reading of head CT shows no mass, ischemia, bleed 03/20/18 11:20 Case d/w Dr. Ramos (neurology) - agrees w/stat MRV to r/o CV thrombosis as well as MRI to evaluate for MS. Suggests optho consult. 03/20/18 11:25 case d/w Dr. Rocha (radiology) - will protocol MRI/MRV 03/20/18 11:58 Paged ophthalmology 03/20/18 13:46 Patient reassessed @ bedside Symptomatically improved s/p headache cocktail Attending discussed c/w Dr. La (ophthalmology) - does not think there is need for dilatation as clinical case not c/w acute ophthalmologic emergency - not detachment (intermittent), possibly migraine; less likely optic neuritis ( intermittent) 03/20/18 14:03 MRI negative for demyelination; MRV negative for venous occlusion; will discharge home with referral to ophthalmology and neurology. Clinical Impression: Likely migraine headache as diagnosis of exclusion I discussed the physical exam findings, ancillary test results and final diagnoses with the oatient. Patient was satisfied with the the care received and felt comfortable with the discharge plan and treatment plan. Patient will return to the ED with any new, persistent or worsening symptoms. *DC/Admit/Observation/Transfer Diagnosis at time of Disposition: Vision changes - Discharge Dispostion Disposition: HOME Condition at time of disposition: Good Decision to Admit order: No - Referrals Referrals: Scott Miller MD [Staff Physician] - Ghulam La MD [Staff Physician] - - Patient Instructions Printed Discharge Instructions: DI for Headache Additional Instructions: Please make an appointment for evaluation by an machine pecan gatherer in the next 2 days. You can call your insurance company for a referral or call the doctor we have referred. We have also referred you to a neurologist, please make an appointment for evaluation of your headaches. You can call your insurance company for a referral or call the doctor we have referred. Your care is not complete until you follow-up with these doctors. You can take Tylenol (up to 4000 mg daily) alternating with Motrin (up to 3200 mg daily) for your headaches/pain. Return to the Emergency Department for any new/worsening/concerning symptoms. - Post Discharge Activity
[2018-03-20 10:08] LABS: BLOOD UREA NITROGEN 15 mg/dl (7-18); CREATININE 0.7 mg/dl (0.6-1.3); GLUCOSE,RANDOM 88 mg/dl (74-106); POTASSIUM 3.9 mmol/L (3.5-5.1); SODIUM 136 mmol/L (136-145)
[2018-03-20 10:09] LABS: ALBUMIN 3.8 g/dl (3.5-5.0); ANION GAP 9 MMOL/L (8-16); BILIRUBIN,TOTAL 0.4 mg/dl (0.2-1.0); CALCIUM 8.8 mg/dl (8.4-10.2); CHLORIDE 102 mmol/L (98-107); CO2 25 mmol/L (22-28); TOT PROT 6.7 g/dl (6.4-8.3)
[2018-03-20 10:10] LABS: ALK PHOS 37 U/L (32-92); SGOT/AST 17 U/L (10-42); SGPT/ALT 13 U/L (10-40)
== END 2018-03-20 14:31 | disposition home or self-care (01) ==
LOC: FER 08:54
PROC: 3E033NZ Introduction of Analgesics, Hypnotics, Sedatives into Peripheral Vein, Percutaneous Approach (ICD-10-PCS; principal; 2018-03-20)
PROC: 3E033GC Introduction of Other Therapeutic Substance into Peripheral Vein, Percutaneous Approach (ICD-10-PCS; 2018-03-20)
PROC: 3E0337Z Introduction of Electrolytic and Water Balance Substance into Peripheral Vein, Percutaneous Approach (ICD-10-PCS; 2018-03-20)
DX: H53.9 Unspecified visual disturbance (principal); J45.909 Unspecified asthma, uncomplicated
CPT/HCPCS: 36415; 70450-TC; 70544-TC; 70551-TC; 80053; 81003; 84703; 85025; 85651; 86140; 87086; 99283-25; J0131; J7030

== ENCOUNTER 2019-04-07 17:39 | Emergency (ER) | payer OTHER ==
[2019-04-07 18:01] VITALS: BP 119/64; PULSE 79; TEMP 98.2; BMI 22.1
[2019-04-07] MEDS ORDERED: CYCLOBENZAPRINE HCL 10 MG TABLET (FP) PO ONE ×2 (18:01→18:51)
[2019-04-07] MEDS ORDERED: KETOROLAC TROMETHAMINE 60 MG/2 ML VIAL IM ONE (18:01)
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
[2019-04-07] MEDS ORDERED: CYCLOBENZAPRINE HCL 10 MG TABLET (FP) ONE (18:51)
[2019-04-07] MEDS ORDERED: KETOROLAC TROMETHAMINE 60 MG/2 ML VIAL ONE (18:51)
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
== END 2019-04-07 20:12 | disposition home or self-care (01) ==
LOC: JER 17:39 → JERFT 17:39
PROC: 3E0233Z Introduction of Anti-inflammatory into Muscle, Percutaneous Approach (ICD-10-PCS; principal; 2019-04-07)
DX: M62.830 Muscle spasm of back (principal); M54.5 Low back pain; M54.6 Pain in thoracic spine; V43.52XA Car driver injured in collision with other type car in traffic accident, initial encounter; Y92.414 Local residential or business street as the place of occurrence of the external cause; Y93.89 Activity, other specified; Y99.8 Other external cause status; Z88.0 Allergy status to penicillin
CPT/HCPCS: 72070-TC-FY; 72100-TC-FY; 99281-25

== ENCOUNTER 2019-11-13 13:06 | Emergency (ER) | payer OTHER ==
--- NOTE | 2019-11-13 13:09 | PDOC ---
History of Present Illness - General Chief Complaint: Difficulty with Vision Stated Complaint: SENT FROM URGENT CARE HAD MIGRAINE TEMPORARY VISIO - History of Present Illness Initial Comments: HPI: 24yo F with PMH of asthma presenting with headache x 3 days. Patient reports the heaache started gradually and got especially worse last night. Presented to an urgent care and was referred to the ED for further evaluation. Patient reports photophobia and is currently wearing sunglasses. Nauseous and had one episode of nonbloody bilious vomiting today. Has had a poor appetite and does not feel like she is well hydrated. Took motrin yesterday and tylenol this morning with mild relief of symptoms. Headache is currently rated 7/10. LMP on 10/27/19. Is on the control patch. Has had trouble sleeping. Denies recent trauma or syncope. No fevers, chills, chest pain, or shortness of breath. PCP: Dr. Gonzalez ROS: Constitutional: no fever, no chills HEENT: no throat pain, no dysphagia Cardiovascular: no chest pain, no palpitations Respiratory: no cough, no shortness of breath Gastrointestinal: no abdominal pain, no nausea Genitourinary: no dysuria, no hematuria Musculoskeletal: no myalgia, no arthralgia Skin: no rash, no itching Neurologic: +headache, no weakness Psych: no agitation, no anxiety PE: General: Awake, alert, and fully oriented, in no acute distress, wearing sunglasses Head: No signs of trauma Eyes: PERRL, sclera anicteric, OD 20/25, OS 20/30, Both 20/20 ENT: Moist mucus membranes Neck: Normal ROM, supple Lungs: Lungs clear, Normal breath sounds Cardio: Regular rhythm, S1 and S2 present Abdomen: Soft, nontender Extremities: Normal range of motion, Distal pulses present Skin: Warm, Dry, normal turgor Neurologic: Cranial nerves II through XII intact. Normal speech, sensation, strength, coordination, and gait. ED Course/MDM: DDX including but not limited to tension headache, ocular migraine, cluster headache, SAH, IIH, temporal arteritis Labs CT Head Fluids Reglan [facility] 11/13/19 13:09 CT head as reported by radiology: " EXAM#: TYPE/EXAM: RESULT: [id number] CT/HEAD CT WITHOUT CONTRAST History: Evaluate for headaches CT scan of the brain without intravenous contrast. Axial images were obtained from the skull base up to the high convexity. COMPARISON: Prior CT scan of the head dated 03/20/2018 The ventricles and basal cisterns appear unremarkable. No mass lesion, gross acute infarct or intracranial hemorrhage are identified. Mild mucoperiosteal thickening in the ethmoid air cells, posteriorly. Otherwise, the visualized paranasal sinuses and mastoid air cells are well-aerated. The calvarium is intact. Impression: No evidence of a focal intracranial lesion or hemorrhage seen. Mild ethmoid chronic sinusitis Reported By: Tim Agosto MD 11/13/19 1503 " CBC WBC 8.4 K/mm3 (4.0-10.8) 11/13/19 13:55 RBC 4.21 M/mm3 (3.60-5.2) 11/13/19 13:55 Hgb 13.5 GM/dl (10.7-15.3) 11/13/19 13:55 Hct 39.7 % (32.4-45.2) 11/13/19 13:55 MCV 94.3 fl (80-96) 11/13/19 13:55 MCH 32.1 pg (25.7-33.7) 11/13/19 13:55 MCHC 34.0 g/dl (32.0-36.0) 11/13/19 13:55 RDW 12.7 % (11.6-15.6) 11/13/19 13:55 Plt Count 281 K/MM3 (134-434) 11/13/19 13:55 MPV 7.6 fl (7.5-11.1) 11/13/19 13:55 Absolute Neuts (auto) 6.1 K/mm3 11/13/19 13:55 Neutrophils % 73.2 % (42.8-82.8) 11/13/19 13:55 Lymphocytes % 22.1 % (8-40) 11/13/19 13:55 Monocytes % 3.4 % (3.8-10.2) L 11/13/19 13:55 Eosinophils % 0.9 % (0-4.5) 11/13/19 13:55 Basophils % 0.4 % (0-2.0) 11/13/19 13:55 No leukocytosis or anemia CMP Sodium 137 mmol/L (136-145) 11/13/19 13:48 Potassium 3.9 mmol/L (3.5-5.1) 11/13/19 13:48 Chloride 101 mmol/L (98-107) 11/13/19 13:48 Carbon Dioxide 26 mmol/L (21-32) 11/13/19 13:48 Anion Gap 10 MMOL/L (8-16) 11/13/19 13:48 BUN 14.0 mg/dl (7-18) 11/13/19 13:48 Creatinine 0.7 mg/dl (0.55-1.3) 11/13/19 13:48 Est GFR (CKD-EPI)AfAm 140.55 11/13/19 13:48 Est GFR (CKD-EPI)NonAf 121.27 11/13/19 13:48 Random Glucose 97 mg/dl (74-106) 11/13/19 13:48 Calcium 9.4 mg/dl (8.5-10) 11/13/19 13:48 Total Bilirubin 0.6 mg/dl (0.2-1) 11/13/19 13:48 AST 24 U/L (15-37) 11/13/19 13:48 ALT 24 U/L (13-61) 11/13/19 13:48 Alkaline Phosphatase 47 U/L (45-117) 11/13/19 13:48 Total Protein 7.1 g/dl (6.4-8.2) 11/13/19 13:48 Albumin 4.3 g/dl (3.4-5.0) 11/13/19 13:48 Electrolytes unremarkable Normal Cr No transaminitis Upreg test negative 11/13/19 15:06 Sinusitis may be the cause of the patient's headache Patient reports improvement in her headache Explained to patient that there is still a possibility of SAH despite negative head CT. Patient is of sound mind and has capacity to make decisions. Benefits/risks explained to patient and they voiced understanding. Patient decided to decline lumbar puncture. 11/13/19 16:20 Referral to neurology and ENT Prescriptions sent to pharmacy Ambulating with steady gait Return precautions Stable for discharge Past History - Medical History Allergies/Adverse Reactions: Allergies Allergy/AdvReac Type Severity Reaction Status Date / Time Penicillins Allergy Verified 11/13/19 13:09 Home Medications: Ambulatory Orders Albuterol Sulfate [Proair Hfa] 8.5 gm IH PRN 11/13/19 Fluticasone Prop 0.05% Nasal [Flonase -] 1 - 2 spray NS DAILY #1 spray 11/13/19 Ibuprofen/Phenylephrine HCl [Sudafed PE Head Congestn-Pain] 1 each PO Q6H PRN #20 tablet 11/13/19 Metoclopramide HCl [Reglan] 5 mg PO TID 11/13/19 Norelgestromin/Ethin.estradiol [Xulane Patch] 1 patch TP WEEKLY 11/13/19 Pantoprazole Sodium [Protonix] 40 mg PO DAILY 11/13/19 Asthma: Yes COPD: No - Immunization History Immunization Up to Date: Yes - Psycho-Social/Smoking History Smoking History: Never smoked Have you smoked in the past 12 months: No Number of Cigarettes Smoked Daily: 0 'Breaking Loose' booklet given: 10/15/17 ED Treatment Course - LABORATORY CBC & Chemistry Diagram: 11/13/19 13:55 11/13/19 13:48 Discharge - Discharge Information Problems reviewed: Yes Clinical Impression/Diagnosis: Headache Qualifiers: Headache type: unspecified Headache chronicity pattern: unspecified pattern Intractability: not intractable Qualified Code(s): R51 - Headache Condition: Stable Disposition: HOME - Additional Discharge Information Prescriptions: Fluticasone Prop 0.05% Nasal [Flonase -] 1 - 2 spray NS DAILY #1 spray Ibuprofen/Phenylephrine HCl [Sudafed PE Head Congestn-Pain] 1 each PO Q6H PRN #20 tablet PRN Reason: Headache - Follow up/Referral Referrals: Stormy Gonzalez MD [Primary Care Provider] - Scott Miller MD [Staff Physician] - Tommy Huff MD [Staff Physician] - - Patient Discharge Instructions Patient Printed Discharge Instructions: DI for Sinusitis, DI for Headache Additional Instructions: You came to the emergency department for a headache. CT did not show any bleed, but did show mild chronic sinusitis. Prescriptions sent to your pharmacy. Take as instructed. You can also take [id number] tylenol for pain. Follow the instructions on the medication bottle. You can take up to 1000mg every 6 hours. Make sure you do not take too much medicine. The maximum daily dose for tylenol is 4000mg/day. We have referred you to neurologist and ENT specialists for further evaluation. Call and make appointments. Your care is not complete until you do so. Also follow-up with your primary care physician within the next 2-3 days to discuss this ED visit and to further evaluate your headache. Medical attention is required if: you experience persistent symptoms, worsening headache, have a seizure, or have focal numbness or weakness. If you think you are having an emergency, call for emergency medical services or present to the emergency department right away - Post Discharge Activity
[2019-11-13 13:33] VITALS: TEMP 98.1; BMI 20.7
[2019-11-13] MEDS ORDERED: SODIUM CHLORIDE 1,000 ML IV STA (13:44)
[2019-11-13] MEDS ORDERED: METOCLOPRAMIDE HCL INJECTION 10 MG/2 ML VIAL IVPUSH ONE (13:44)
[2019-11-13] MEDS ORDERED: ACETAMINOPHEN 1000 MG/100 ML VIAL (NON FORMULARY) IVPB ONE (13:44)
[2019-11-13] MEDS ORDERED: METOCLOPRAMIDE HCL INJECTION 10 MG/2 ML VIAL ONE (13:53)
[2019-11-13] MEDS ORDERED: ACETAMINOPHEN INJECTION 100 ML IVPB ONE (13:53)
--- NOTE | 2019-11-13 14:01 | PDOC ---
Attending Attestation - Resident Resident Name: Meagan Castanon - ED Attending Attestation I have performed the following: I have examined & evaluated the patient, The case was reviewed & discussed with the resident, I agree w/resident's findings & plan, Exceptions are as noted - HPI HPI: 11/13/19 13:54 24y F hx of occasional headaches presents with headache. Headache was gradual in on set starting approx 3-4 days ago as a mild headache that is pounding in the frontal scalp, yesterday the pain worsened where it was difficult for he to sleep. Today, she endorses some changes in her L sided vision - she describes it as similar to when you rub your eyes and see flashes of light. endorses photophobia. She had originally presented to urgent care who referredher to the ED due to concern for vision loss. Pt notes her vision is baseline. She denies any fever/chills, focal numbness/tingling/weakness, cp, sob, neck pain/stiffness, back pain. - Physicial Exam PE: 11/13/19 15:36 exam: GENERAL: The patient is awake, alert, and fully oriented, Nontoxic - in no acute distress. HEAD: Normocephalic, atraumatic. EYES: extraocular movements intact, sclera anicteric, conjunctiva clear. ENT: Normal voice, Moist mucous membranes. NECK: Normal range of motion, supple LUNGS: Breath sounds equal, clear to auscultation bilaterally. No wheezes, no rhonchi, no rales. HEART: Regular rate and rhythm, normal S1 and S2 without murmur, rub or gallop. ABDOMEN: Soft, nontender, No guarding, no rebound. No CVA tenderness EXTREMITIES: Normal range of motion, no edema. NEUROLOGICAL: No facial assymetry, Normal speech, Moving all 4 extremity spontaneously and symmetrically, Sensation symmetric bilateral PSYCH: Normal mood, normal affect. SKIN: Warm, Dry, normal turgor, - Medical Decision Making 11/13/19 15:36 Suspect migraine headache neuro intact suspect her vision chagnes was an flashing aura will treat supportively Patient notes that the headache is worse than usual will obtain CT to rule out acute process 11/13/19 15:36 Discharge - Discharge Information Problems reviewed: Yes Clinical Impression/Diagnosis: Headache Qualifiers: Headache type: unspecified Headache chronicity pattern: unspecified pattern I ntractability: not intractable Qualified Code(s): R51 - Headache Condition: Stable Disposition: HOME - Additional Discharge Information Prescriptions: Fluticasone Prop 0.05% Nasal [Flonase -] 1 - 2 spray NS DAILY #1 spray Ibuprofen/Phenylephrine HCl [Sudafed PE Head Congestn-Pain] 1 each PO Q6H PRN #20 tablet PRN Reason: Headache - Follow up/Referral Referrals: Scott Miller MD [Staff Physician] - Stormy Gonzalez MD [Primary Care Provider] - Tommy Huff MD [Staff Physician] - - Patient Discharge Instructions Patient Printed Discharge Instructions: DI for Sinusitis, DI for Headache Additional Instructions: You came to the emergency department for a headache. CT did not show any bleed, but did show mild chronic sinusitis. Prescriptions sent to your pharmacy. Take as instructed. You can also take [id number] tylenol for pain. Follow the instructions on the medication bottle. You can take up to 1000mg every 6 hours. Make sure you do not take too much medicine. The maximum daily dose for tylenol is 4000mg/day. We have referred you to neurologist and ENT specialists for further evaluation. Call and make appointments. Your care is not complete until you do so. Also follow-up with your primary care physician within the next 2-3 days to discuss this ED visit and to further evaluate your headache. Medical attention is required if: you experience persistent symptoms, worsening headache, have a seizure, or have focal numbness or weakness. If you think you are having an emergency, call for emergency medical services or present to the emergency department right away - Post Discharge Activity
[2019-11-13 14:23] LABS: BASO % 0.4 % (0-2.0); EOS % 0.9 % (0-4.5); HEMATOCRIT 39.7 % (32.4-45.2); HEMOGLOBIN 13.5 GM/dl (10.7-15.3); LYMPH % 22.1 % (8-40); MCH 32.1 pg (25.7-33.7); MEAN CELL VOLUME 94.3 fl (80-96); MEAN PLT VOLUME 7.6 fl (7.5-11.1); MONO % 3.4 % (3.8-10.2); NEUT % 73.2 % (42.8-82.8); PLATELET COUNT 281 K/MM3 (134-434); RBC 4.21 M/mm3 (3.60-5.2); RDW 12.7 % (11.6-15.6); WHITE BLOOD COUNT 8.4 K/mm3 (4.0-10.8)
[2019-11-13 14:36] LABS: ALBUMIN 4.3 g/dl (3.4-5.0); BILIRUBIN,TOTAL 0.6 mg/dl (0.2-1); CALCIUM 9.4 mg/dl (8.5-10); CREATININE 0.7 mg/dl (0.55-1.3); POTASSIUM 3.9 mmol/L (3.5-5.1); TOT PROT 7.1 g/dl (6.4-8.2)
[2019-11-13 16:01] VITALS: BP 106/55; PULSE 68
== END 2019-11-13 16:37 | disposition home or self-care (01) ==
LOC: FER 13:06
PROC: 3E0333Z Introduction of Anti-inflammatory into Peripheral Vein, Percutaneous Approach (ICD-10-PCS; principal; 2019-11-13)
PROC: 3E033GC Introduction of Other Therapeutic Substance into Peripheral Vein, Percutaneous Approach (ICD-10-PCS; 2019-11-13)
PROC: 3E0337Z Introduction of Electrolytic and Water Balance Substance into Peripheral Vein, Percutaneous Approach (ICD-10-PCS; 2019-11-13)
DX: R51 Headache (principal)
CPT/HCPCS: 36415; 70450-TC; 80053; 84703; 85025; 99284-25; J0131